=== PATIENT | male | born 1985 | race Caucasian/White ===

== ENCOUNTER 2020-06-10 10:05 | Emergency (ER) | payer OTHER ==
[2020-06-10] MEDS ORDERED: Dexamethasone 4 MG/ML SDV IM ONE (10:32)
--- NOTE | 2020-06-10 10:41 | EDM.PDOC ---
<Bill Fraga Jana - Last Filed: 06/10/20 10:44> ED HPI GENERAL MEDICAL PROBLEM - General Chief Complaint: Neck Problem Stated Complaint: NECK PAIN Time Seen by Provider: 06/10/20 10:34 Source of Information: Reports: Patient History Limitations: Reports: No Limitations - History of Present Illness INITIAL COMMENTS - FREE TEXT/NARRATIVE: 34 y/o M c/o neck pain since Sunday morning. Pt states he worked out like normal Sunday night and awoke with the neck pain the following day. No hx of trauma to the neck. Pt states the pain has been increasing in severity and has not improved with Ibuprofen. Has been to the chiropractor twice and was adjusted both times once yesterday and once this morning. Per pt his chiropractor told him to go to the ER for an MRI of the neck. The pain in the neck is constant 9/10 with associated numbness to the left 2-5 finger tips. Denies any other neurological deficits. Denies fever, chills, cough, drugs, etoh, loss of bowel or bladder control, urinary retention, trouble breathing, cp, abd pn, weakness. Duration: Day(s): Location: Reports: Neck Quality: Reports: Ache, Sharp Severity: Severe Improves with: Reports: None Worsens with: Reports: Movement - Related Data Allergies Allergy/AdvReac Type Severity Reaction Status Date / Time No Known Allergies Allergy Verified 06/10/20 10:21 ED ROS GENERAL - Review of Systems Review Of Systems: Comprehensive ROS is negative, except as noted in HPI. ED EXAM, UPPER BACK/NECK PAIN - Physical Exam Exam: See Below Exam Limited By: No Limitations General Appearance: Alert, WD/WN, No Apparent Distress Eye Exam: Bilateral Eye: PERRL Ears Exam: Normal External Exam, Normal Canal, Hearing Grossly Normal, Normal TMs Nose Exam: Normal Inspection, Normal Mucousa, No Blood Throat/Mouth Exam: Normal Inspection, Normal Lips, Normal Teeth, Normal Gums, Normal Oropharynx, Normal Voice, No Airway Compromise Head Exam: Atraumatic, Normocephalic Neck Exam: Spinous Processes Tender (point tenderness to c2 with less severe tenderness present from c3-t1), Other Cardiovascular/Respiratory: Regular Rate, Rhythm, No M/R/G, Normal Peripheral Pulses, No JVD, Normal Breath Sounds, No Respiratory Distress GI/Abdominal: Normal Bowel Sounds, Soft, Non-Tender, No Organomegaly, No Distention, No Abnormal Bruit, No Mass (Male) Exam: Deferred Rectal (Males) Exam: Deferred Back Exam: Normal Inspection, Full Range of Motion, NT Extremities: Normal Inspection, Normal Range of Motion, Non-Tender, No Pedal E amber, Normal Capillary Refill Neurologic: principal architect II-XII nml As Tested, No Motor/Sensory Deficits, Alert, Normal Mood/Affect, Oriented x 3 DTR: 2+: Bicep (R), Bicep (L), Tricep (R), Tricep (L), Patella (R), Patella (L) Psychiatric: Normal Affect, Normal Mood Skin Exam: Normal Color, Warm/Dry Lymphatic: No Adenopathy Departure - Departure Time of Disposition: 10:45 Disposition: Home, Self-Care 01 Condition: Fair Clinical Impression: Cervical nerve root impingement - Discharge Information *PRESCRIPTION DRUG MONITORING PROGRAM REVIEWED*: Not Applicable *COPY OF PRESCRIPTION DRUG MONITORING REPORT IN PATIENT [facility]: Not Applicable Instructions: Cervical Radiculopathy, [id number] Forms: ED Department Discharge Additional Instructions: RX cyclobenzaprine RX: Decadron Follow up with your primary care provider or Chiropractor to obtain an MRI of your neck. If any new concerns or symptoms develop contact your primary care facility or return to the ER. <Alan Kendall - Last Filed: 06/10/20 10:53> Course - Orders/Labs/Meds Meds: Medications Discontinued Medications Generic Name Dose Route Start Last Admin Trade Name Juanis PRN Reason Stop Dose Admin Dexamethasone 10 mg 06/10/20 10:32 06/10/20 10:45 Dexamethasone 4 Mg/Ml Sdv IM 06/10/20 10:33 10 mg ONETIME ONE Administration - Re-Assessments/Exams Free Text/Narrative Re-Assessment/Exam: 06/10/20 10:53 I personally performed or re-performed the physical examination and medical decision making. I have verified all student documentation or findings, including history, physical exam and/or medical decision making.
== END 2020-06-10 11:15 | disposition home or self-care (01) ==
LOC: DL.ED 10:05
DX: G54.2 Cervical root disorders, not elsewhere classified (principal)
CPT/HCPCS: 96372; 99283; J1100

== ENCOUNTER 2020-12-12 16:57 | Emergency (ER) | payer OTHER ==
[2020-12-12] MEDS ORDERED: Sodium Chloride 0.9% 10 ML Syringe FLUSH PRN (18:41)
[2020-12-12] MEDS ORDERED: Ondansetron 4 MG/2 ML SDV IV ONE (18:42)
[2020-12-12] MEDS ORDERED: Sodium Chloride 0.9% 1,000 ML IV ONE (18:42)
[2020-12-12] MEDS ORDERED: HYDROmorphone 0.5 MG/0.5 ML Syringe IVPUSH ONE (18:43)
--- NOTE | 2020-12-12 18:45 | EDM.PDOC ---
<Bill Fraga Jana - Last Filed: 12/12/20 18:40> ED HPI GENERAL MEDICAL PROBLEM - General Chief Complaint: Abdominal Pain Stated Complaint: APENDICIDIS Time Seen by Provider: 12/12/20 18:40 Source of Information: Reports: Patient History Limitations: Reports: No Limitations - History of Present Illness INITIAL COMMENTS - FREE TEXT/NARRATIVE: 34 y/o M c/o abd pn. Pt states 2 days ago he began having diarrhea with no blood. He states yesterday he developed severe 7/10, sharp, abd pn below the belly button that radiates to his r side with associated chills. Denies NV. Denies fever, cough, cp, db, back pn. He states before the diarrhea began he had eaten to hamburger patties but believes they were fully cooked. He still has his appendix, gall bladder. No recent trauma. Duration: Day(s): Treatments AGRICULTURAL SPECIALIST: Reports: NSAIDS abdomen Pain Score (Numeric/FACES): 6 - Related Data Allergies Allergy/AdvReac Type Severity Reaction Status Date / Time oxycodone Allergy Hallucinati Verified 12/12/20 18:40 ons Social & Family History - Caffeine Use Caffeine Use: Reports: None ED ROS GENERAL - Review of Systems Review Of Systems: Comprehensive ROS is negative, except as noted in HPI. ED EXAM, GI/ABD - Physical Exam Exam: See Below Exam Limited By: No Limitations General Appearance: Alert, Mild Distress Throat/Mouth: Normal Inspection, Normal Lips, Normal Teeth, Normal Gums, Normal Oropharynx, Normal Voice, No Airway Compromise Head: Atraumatic, Normocephalic Neck: Normal Inspection, Supple, Non-Tender, Full Range of Motion Respiratory/Chest: No Respiratory Distress, Lungs Clear, Normal Breath Sounds, No Accessory Muscle Use, Chest Non-Tender Cardiovascular: Normal Peripheral Pulses, Regular Rate, Rhythm, No Edema, No Gallop, No JVD, No Murmur, No Rub GI/Abdominal Exam: Tender (tender at McBurneys point and below the umbilicus) (Male) Exam: Deferred Rectal (Males) Exam: Deferred Back Exam: Normal Inspection, Full Range of Motion, NT Extremities: Normal Inspection, Normal Range of Motion, Non-Tender, Normal Capillary Refill, No Pedal Edema Neurological: Alert, Oriented Psychiatric: Normal Affect, Normal Mood Skin Exam: Warm, Dry, Intact Departure - Departure Disposition: Home, Self-Care 01 Clinical Impression: COVID Abdominal pain Qualifiers: Abdominal location: lower abdomen, unspecified Qualified Code(s): R10.30 - Lower abdominal pain, unspecified - Discharge Information Instructions: Symptoms of COVID-19 - [facility] (05/03/2020), COVID-19 Frequently Asked Questions, What You Should Know About COVID-19 to Protect Yourself and Others - [facility], 10 Things You Can Do to Manage Your COVID-19 Symptoms at Home - [facility] (09/24/2020), When You've Been Fully Vaccinated: How to Protect Yourself and Others - [facility] (07/22/2020), COVID-19: What to Do If You Are Sick- [facility] (05/26/2020), COVID-19: Quarantine vs. Isolation - [facility] (02/26/2020) Forms: ED Department Discharge Additional Instructions: May use imodium as directed for diarrhea Isolate/Quarantine for 10 days and notify any close contacts Return to ER with any worsening of symptoms Follow up with your primary care facility Sepsis Event Note (ED) - Evaluation Sepsis Screening Result: No Definite Risk <Komal Kaiser - Last Filed: 12/12/20 20:13> Course - Vital Signs Last Recorded V/S: Last Vital Signs Temp 97.6 F 12/12/20 17:56 Pulse 74 12/12/20 17:56 Resp 20 12/12/20 17:56 BP 143/94 H 12/12/20 17:56 Pulse Ox 96 12/12/20 17:56 - Orders/Labs/Meds Orders: Active Orders 24 hr Category Date Time Status Peripheral IV Care [RC] . DIRECTED Care 12/12/20 18:42 Active Sodium Chloride 0.9% [Saline Flush] Med 12/12/20 18:41 Active 10 ml FLUSH ASDIRECTED PRN Peripheral IV Insertion Adult [OM.PC] Stat Oth 12/12/20 18:42 Ordered Medication Orders Sodium Chloride (Sodium Chloride 0.9% 10 Ml Syringe) 10 ml FLUSH ASDIRECTED PRN PRN Reason: Keep Vein Open Last Admin: 12/12/20 19:04 Dose: 10 ml Documented by: AMADOU Labs: Laboratory Tests 12/12/20 12/12/20 12/12/20 Range/Units 18:30 18:55 18:55 WBC 7.7 (5.0-10.0) 10^3/uL RBC 5.38 (4.6-6.2) 10^6/uL Hgb 16.1 (14.0-18.0) g/dL Hct 48.3 (40.0-54.0) % MCV 89.8 (80-100) fL MCH 29.9 (27.0-34.0) pg MCHC 33.3 (33.0-35.0) g/dL Plt Count 248 (150-450) 10^3/uL Neut % (Auto) 67.6 (42.2-75.2) % Lymph % (Auto) 21.3 (20.5-50.1) % Gilchrist % (Auto) 9.2 H (2-8) % Eos % (Auto) 1.6 (1.0-3.0) % Baso % (Auto) 0.3 (0.0-1.0) % Sodium 142 (136-145) mmol/L Potassium 3.7 (3.5-5.1) mmol/L Chloride 103 (98-107) mmol/L Carbon Dioxide 29 (21-32) mmol/L Anion Gap 13.7 H (7-13) mEq/L BUN 14 (7-18) mg/dL Creatinine 1.03 (0.70-1.30) mg/dL Est Cr Clr Drug Dosing 116.94 mL/min Estimated GFR (MDRD) > 60 BUN/Creatinine Ratio 13.6 (No establ ref range) Glucose 111 H (70-99) mg/dL Calcium 9.0 (8.5-10.1) mg/dL Total Bilirubin 0.5 (0.2-1.0) mg/dL AST 17 (15-37) U/L ALT 27 (16-63) U/L Alkaline Phosphatase 54 (46-116) U/L C-Reactive Protein 2.8 H (0.0-0.9) mg/dL Total Protein 8.0 (6.4-8.2) g/dL Albumin 4.0 (3.4-5.0) g/dL Globulin 4.0 Albumin/Globulin Ratio 1.0 Amylase 42 (25-115) U/L Lipase 90 (73-393) U/L Urine Color (YELLOW) Urine Appearance (CLEAR) Urine pH (5.0-9.0) Ur Specific [place] (1.005-1.030) Urine Protein (NEGATIVE) Urine Glucose (UA) (NEGATIVE) Urine Ketones (NEGATIVE) Urine Occult Blood (NEGATIVE) Urine Nitrite (NEGATIVE) Urine Bilirubin (NEGATIVE) Urine Urobilinogen (0.2-1.0) mg/dL Ur Leukocyte Esterase (NEGATIVE) Urine RBC (0-5) /HPF Urine WBC (0-5/HPF) /HPF Ur Epithelial Cells (NOT SEEN) /HPF Urine Bacteria (0-FEW/HPF) /HPF Urine Mucus (NOT SEEN) /LPF Urine Opiates Screen (NEGATIVE) Ur Oxycodone Screen (NEGATIVE) Urine Methadone Screen (NEGATIVE) Ur Barbiturates Screen (NEGATIVE) U Tricyclic Antidepress (NEGATIVE) Ur Phencyclidine Scrn (NEGATIVE) Ur Amphetamine Screen (NEGATIVE) U Methamphetamines Scrn (NEGATIVE) Urine MDMA Screen (NEGATIVE) U Benzodiazepines Scrn (NEGATIVE) Urine Cocaine Screen (NEGATIVE) U Marijuana (THC) Screen (NEGATIVE) SARS-CoV-2 RNA (KENDY) Positive H (NEGATIVE) 12/12/20 12/12/20 Range/Units 19:11 19:11 WBC (5.0-10.0) 10^3/uL RBC (4.6-6.2) 10^6/uL Hgb (14.0-18.0) g/dL Hct (40.0-54.0) % MCV (80-100) fL MCH (27.0-34.0) pg MCHC (33.0-35.0) g/dL Plt Count (150-450) 10^3/uL Neut % (Auto) (42.2-75.2) % Lymph % (Auto) (20.5-50.1) % Gilchrist % (Auto) (2-8) % Eos % (Auto) (1.0-3.0) % Baso % (Auto) (0.0-1.0) % Sodium (136-145) mmol/L Potassium (3.5-5.1) mmol/L Chloride (98-107) mmol/L Carbon Dioxide (21-32) mmol/L Anion Gap (7-13) mEq/L BUN (7-18) mg/dL Creatinine (0.70-1.30) mg/dL Est Cr Clr Drug Dosing mL/min Estimated GFR (MDRD) BUN/Creatinine Ratio (No establ ref range) Glucose (70-99) mg/dL Calcium (8.5-10.1) mg/dL Total Bilirubin (0.2-1.0) mg/dL AST (15-37) U/L ALT (16-63) U/L Alkaline Phosphatase (46-116) U/L C-Reactive Protein (0.0-0.9) mg/dL Total Protein (6.4-8.2) g/dL Albumin (3.4-5.0) g/dL Globulin Albumin/Globulin Ratio Amylase (25-115) U/L Lipase (73-393) U/L Urine Color Yellow (YELLOW) Urine Appearance Slightly cloudy (CLEAR) Urine pH 5.5 (5.0-9.0) Ur Specific [place] >= 1.030 (1.005-1.030) Urine Protein 30 H (NEGATIVE) Urine Glucose (UA) Negative (NEGATIVE) Urine Ketones Negative (NEGATIVE) Urine Occult Blood Moderate H (NEGATIVE) Urine Nitrite Negative (NEGATIVE) Urine Bilirubin Negative (NEGATIVE) Urine Urobilinogen 0.2 (0.2-1.0) mg/dL Ur Leukocyte Esterase Negative (NEGATIVE) Urine RBC 0-5 (0-5) /HPF Urine WBC 0-5 (0-5/HPF) /HPF Ur Epithelial Cells Few (NOT SEEN) /HPF Urine Bacteria Few (0-FEW/HPF) /HPF Urine Mucus Many H (NOT SEEN) /LPF Urine Opiates Screen Negative (NEGATIVE) Ur Oxycodone Screen Negative (NEGATIVE) Urine Methadone Screen Negative (NEGATIVE) Ur Barbiturates Screen Negative (NEGATIVE) U Tricyclic Antidepress Negative (NEGATIVE) Ur Phencyclidine Scrn Negative (NEGATIVE) Ur Amphetamine Screen Negative (NEGATIVE) U Methamphetamines Scrn Negative (NEGATIVE) Urine MDMA Screen Negative (NEGATIVE) U Benzodiazepines Scrn Negative (NEGATIVE) Urine Cocaine Screen Negative (NEGATIVE) U Marijuana (THC) Screen Negative (NEGATIVE) SARS-CoV-2 RNA (KENDY) (NEGATIVE) Meds: Medications Generic Name Dose Route Start Last Admin Trade Name Freq PRN Reason Stop Dose Admin Sodium Chloride 10 ml 12/12/20 18:41 12/12/20 19:04 Sodium Chloride 0.9% 10 Ml Syringe FLUSH 10 ml ASDIRECTED PRN Administration Keep Vein Open Discontinued Medications Generic Name Dose Route Start Last Admin Trade Name Freq PRN Reason Stop Dose Admin Hydromorphone HCl 0.5 mg 12/12/20 18:43 12/12/20 19:12 Hydromorphone 0.5 Mg/0.5 Ml Syringe IVPUSH 12/12/20 18:44 0.5 mg ONETIME ONE Administration Sodium Chloride 1,000 mls @ 999 mls/hr 12/12/20 18:42 12/12/20 19:02 Normal Saline IV 12/12/20 19:42 999 mls/hr .BOLUS ONE Administration Ondansetron HCl 4 mg 12/12/20 18:42 12/12/20 19:02 Ondansetron 4 Mg/2 Ml Sdv IV 12/12/20 18:43 4 mg ONETIME ONE Administration Departure - Departure Time of Disposition: 20:11 Condition: Good - Discharge Information *PRESCRIPTION DRUG MONITORING PROGRAM REVIEWED*: No *COPY OF PRESCRIPTION DRUG MONITORING REPORT IN PATIENT [facility]: No Sepsis Event Note (ED) - Focused Exam Vital Signs: Vital Signs Temp Pulse Resp BP Pulse Ox 12/12/20 17:56 97.6 F 74 20 143/94 H 96
[2020-12-12 19:17] LABS: ANION GAP 13.7 mEq/L (7-13); CHLORIDE,CL 103 mmol/L (98-107); SODIUM,NA 142 mmol/L (136-145)
[2020-12-12 19:41] LABS: AMPHETAMINES,URINE NEGATIVE (NEGATIVE); BARBITURATES,URINE NEGATIVE (NEGATIVE); BENZODIAZEPINE,URINE NEGATIVE (NEGATIVE); MDMA (ECSTASY), URINE NEGATIVE (NEGATIVE); METHADONE,URINE NEGATIVE (NEGATIVE); METHAMPHETAMINES,URINE NEGATIVE (NEGATIVE); OPIATES,URINE NEGATIVE (NEGATIVE); OXYCODONE,URINE NEGATIVE (NEGATIVE); PHENCYCLIDINE,URINE NEGATIVE (NEGATIVE); TCA,URINE NEGATIVE (NEGATIVE)
== END 2020-12-12 20:21 | disposition home or self-care (01) ==
LOC: DL.ED 16:57
DX: U07.1 COVID-19 (principal); R10.30 Lower abdominal pain, unspecified; Z88.5 Allergy status to narcotic agent
CPT/HCPCS: 36415; 80053; 80305; 81001; 82150; 83690; 85025; 86140; 87635; 96374; 96375; 99284; J1170; J2405; J7030; U0002

== ENCOUNTER 2021-05-02 13:43 | Emergency (ER) | payer OTHER | END 2021-05-02 14:37 | disposition left against medical advice (07) | LOC: DL.ED 13:43 | DX: T33.0 Superficial frostbite of head (principal); Z53.21 Procedure and treatment not carried out due to patient leaving prior to being seen by health care provider ==

== ENCOUNTER 2022-12-09 16:51 | Emergency (ER) | payer OTHER ==
[2022-12-09] MEDS ORDERED: Ketorolac 30 MG/ML SDV IM ONE (17:56)
[2022-12-09 18:45] VITALS: BP 162/94; PULSE 85
== END 2022-12-09 18:59 | disposition home or self-care (01) ==
LOC: DL.ED 16:51
DX: S13.4XXA Sprain of ligaments of cervical spine, initial encounter (principal); S23.9XXA Sprain of unspecified parts of thorax, initial encounter; I10 Essential (primary) hypertension; Z79.899 Other long term (current) drug therapy; Z88.5 Allergy status to narcotic agent; V89.2XXA Person injured in unspecified motor-vehicle accident, traffic, initial encounter; Y92.410 Unspecified street and highway as the place of occurrence of the external cause
CPT/HCPCS: 72125; 72128; 96372; 99282; 99283; J1885

== ENCOUNTER 2023-09-08 18:23 | Emergency (ER) | payer BC, OTHER ==
[2023-09-08] MEDS: traMADol 50 MG Tab PO ONE (19:21)
[2023-09-08] MEDS: Lidocaine 1% 5 ML VIAL INJECT ONE (19:37)
[2023-09-08] MEDS: Diphtheria,Pertussis(Acell),Tetanus Vaccine 0.5 ML Syringe IM ONE (20:16)
[2023-09-08] MEDS: Cephalexin 500 MG Cap PO ONE (20:20)
[2023-09-08] MEDS: Take Home: Cephalexin 500 MG Cap, 6 Cap Pack PO ONE (20:25)
[2023-09-08] MEDS: Take Home: traMADol 50 MG, 4 Tab Pack PO ONE (20:30)
[2023-09-09 11:44] VITALS: BP 148/118; PULSE 63
== END 2023-09-08 20:42 | disposition home or self-care (01) ==
LOC: DL.ED 18:23
DX: S61.222A Laceration with foreign body of right middle finger without damage to nail, initial encounter (principal); S61.224A Laceration with foreign body of right ring finger without damage to nail, initial encounter; Z23 Encounter for immunization; I10 Essential (primary) hypertension; Z88.5 Allergy status to narcotic agent; W45.8XXA Other foreign body or object entering through skin, initial encounter
CPT/HCPCS: 12001; 73120-RT; 90471; 90715; 99283; 99283-25; A9270-GY; J3490